=== PATIENT | male | born 1935 | race Caucasian/White ===

== ENCOUNTER 2017-03-08 06:42 | Day surgery (SDC) | payer MEDICARE, BC ==
[~2017-03-08] VITALS: Ht 177.8 cm; Wt 86.7 kg
--- NOTE | ~2017-03-08 | OR ---
PATIENT'S NAME: DAKOTA CHAUDHARY [facility] AGE: 82 Y [address] [id number] [address] LOCATION: GICU ADMIT DATE: 03/08/2017 OR/Procedure Report DISCHARGE DATE: FAMILY PHYSICIAN: Rand Bailey PA-C ATTENDING PHYSICIAN: Vangie Rice SURGEON: Vangie Rice MD [employer] COUNSELOR: DATE OF PROCEDURE: 03/08/2017 PREOPERATIVE DIAGNOSES: 1. Right L4-L5 lateral recess stenosis. 2. Right L4-L5 disk herniation. POSTOPERATIVE DIAGNOSES: 1. Right L4-L5 lateral recess stenosis. 2. Right L4-L5 disk herniation. OPERATIONS PROPOSED AND PERFORMED: 1. Right L4-L5 decompressive partial hemilaminectomy with medial facetectomy and foraminotomy for decompression of the lateral recess using the minimally invasive approach (MED). 2. Right L4-L5 microdiskectomy. 3. Microscope. 4. Fluoroscopy with interpretation. DESCRIPTION OF PROCEDURE: Under general anesthesia, the patient was positioned prone. Back was prepped and draped in the usual fashion. A spinal needle was placed one fingerbreadth from the midline directly opposite the L4- L5 disk space. This position was confirmed fluoroscopically, interpreted by me. This position was then marked. Next, a linear incision was then carried out vertically centered on this spot. Next, K-wire was passed through this port to rest on the inferior part of the lamina of L4, it was directly opposite the L4-L5 disk space. Its position was confirmed fluoroscopically. Next, muscle dilators were sequentially passed over the K-wire and after passing the first muscle dilator, I removed the K-wire and then the subsequent muscle dilators were passed over the initial one. With each passage, we ascertained our position fluoroscopically making sure that we were centered on the L4-L5 disk space. Next, a tubular retractor was then passed over the last muscle dilator and the tubular retractor was 18 cm in diameter and it also came to rest on the inferior part of the lamina of L4 centered on the L4-L5 disk space. Its position was confirmed fluoroscopically. After this was done, the muscle dilators were removed. The tubular retractor was then connected to the flexible arm of the flexible arm retractor. The flexible arm was tightened and the microscope was brought in. The C-arm was removed. With each passage of the muscle dilators as well as the tubular retractor, I PATIENT'S NAME: DAKOTA CHAUDHARY [facility] AGE: 82 Y [address] ROOM: [id number] [place], [place] [id number] LOCATION: GICU ADMIT DATE: 03/08/2017 OR/Procedure Report DISCHARGE DATE: FAMILY PHYSICIAN: Rand Bailey PA-C ATTENDING PHYSICIAN: Vangie Rice confirmed our position fluoroscopically myself. Next, with the aid of the microscope, we excised the soft tissue from the inferior part of the lamina of L4, drilled out the inferior part of the lamina of L4, and drilled laterally enough to convince ourselves that we were lateral to the dura and that the hypertrophied facets, which was quite visible. The medial aspect of these had been drilled out. The yellow ligament was removed. This got us to the epidural space. On getting to the epidural space, we were fair quite lateral to the dura that was on the nerve root, that was confirming that we had adequately decompressed the lateral recess. We then followed the nerve root out into the neural foramen, making sure that the nerve root was quite free. The yellow ligament was thick and we excised it. We were able to go almost to the midline of those, not only decompressing the lateral recess, but also decompressing portions of the midline on this side. Next, having identified the nerve roots and the dura, we then the anterior aspect of the nerve root and dura from the tissue anteriorly, used the nerve root retractor to retract the nerve root away from the midline, now we could readily just see the herniating disk at this level. There was no free fragment within the canal; however, on incising the annulus, there was a fragment that had migrated a little bit distally which we were able to retrieve and also shaved the herniating disk. We then went into the disk space and removed all loose fragments of disk material and after this was done, I should point out that the epidural vessels were cauterized using bipolar cautery and incision. After we had carried out this, we then followed the nerve root all the way into the foramen just to make sure that there was not any compression of the nerve root and there was none. The wound was irrigated with bacitracin irrigation as we did throughout the procedure. Next, the microscope was removed. The tubular retractor was removed. A few stitches were placed in the subcutaneous fatty layer and the skin was closed in the usual fashion using subcuticular stitches to bring the skin edges together as well as Steri- Strips. The patient tolerated the procedure well and was taken to the recovery room. In light of his age, which is 82, I felt that to be most appropriate to bring him to the hospital and for him to stay in the hospital overnight. MD NITA WEEMS/ezequiel /[id number] d: 03/08/17 1824 t: 04/02/17 1228, OPERATIVE SUMMARY
--- NOTE | ~2017-03-08 | HP ---
PATIENT'S NAME: DAKOTA CHAUDHARY [facility] AGE: 82 Y [address] ROOM: [place] [id number] LOCATION: [facility] [place] DATE: 03/08/2017 History & Physical DISCHARGE DATE: 03/09/2017 FAMILY PHYSICIAN: Rand Bailey PA-C ATTENDING PHYSICIAN: Vangie Rice DATE OF SERVICE: The patient was admitted on 08 of March of this year and prior to coming, on the 04 of March, he saw his family doctor, who did an H and P on him, the time he came which was current to the time he came for surgery. However, he also indicated that he has not had any changes and I did not see any changes since he saw his family doctor for preop assessment. MD NITA WEEMS/ezequiel /[id number] D: [id number] T: 326 HISTORY & PHYSICAL
[~2017-03-08 06:42] MED LIST: COREG6.25 MG PO; GLUCOPHAGE500 MG PO; MULTIVITAMINS1 EAC1 PO; VITAMIN B12-FO1 EACH PO
[2017-03-09] MEDS ORDERED: PERCOCET 5-3251 EACH PO (11:10)
== END 2017-03-09 12:01 | disposition disaster alternative care site (69) ==
LOC: GICU 06:42 → GSDC 06:42 → GICU 16:47 → GSDC 03-09 12:01
PROC: 0SB20ZZ Excision of Lumbar Vertebral Disc, Open Approach (ICD-10-PCS; principal; 2017-03-08)
PROC: 01NB0ZZ Release Lumbar Nerve, Open Approach (ICD-10-PCS; 2017-03-08)
DX: M48.06 Spinal stenosis, lumbar region (principal); M51.26 Other intervertebral disc displacement, lumbar region; I25.10 Atherosclerotic heart disease of native coronary artery without angina pectoris; E11.22 Type 2 diabetes mellitus with diabetic chronic kidney disease; N18.4 Chronic kidney disease, stage 4 (severe); I50.9 Heart failure, unspecified; E78.00 Pure hypercholesterolemia, unspecified; Z79.899 Other long term (current) drug therapy; Z86.711 Personal history of pulmonary embolism
CPT/HCPCS: J0690; J2001; J2185; J2405; J3010; J7030; J7040